=== PATIENT | female | born 1950 | race Caucasian/White ===

== ENCOUNTER → 2016-05-02 | Outpatient (CLI) | payer OTHER ==
[~2016-05-02] MED LIST: AMOX250C3 PO; CEPH500C PO; CHOL100010 PO; CHOL500021 PO; CLTP PO; FAMO20TA11 PO; GABA-113 PO; GABA1CAP4 PO; GARL400T4 PO; INDSR/60 PO; MAGN200T3 PO; MISCCAP80 PO; OMEP20CA9 PO; PANT40TA PO; PROP20TA67 PO; SIMV80TA2 PO; TRAM-10 PO
[2016-05-02 12:55] LABS: ALT/SGPT 27 U/L (12-78); BLOOD UREA NITROGEN 18 mg/dl (7-18); BUN/CREATININE RATIO 24.5 (10-20); CALCIUM 9.5 mg/dl (8.5-10.1); CARBON DIOXIDE 27 mmol/L (21-32); CHLORIDE 106 mmol/L (98-107); CHOLESTEROL 153 mg/dl (0-200); CREATININE 0.73 mg/dl (0.60-1.20); GLUCOSE 76 mg/dl (70-99); POTASSIUM 3.9 mmol/L (3.5-5.1); SODIUM 142 mmol/L (136-145)
[2016-05-02 12:58] LABS: ALB/GLOB RATIO 1.2 (0.9-2); ALKALINE PHOSPHATASE 92 U/L (45-117); AST/SGOT 28 U/L (15-37); CHOLESTEROL/HDL RATIO 2.4; HDL CHOLESTEROL 64 mg/dl; LDL CHOLESTEROL CALCULATED 65 mg/dl; TRIGLYCERIDES 119 mg/dl (0-150); VERY LOW DENSITY LIPOPROT CALC 24 mg/dl
== END | disposition home or self-care (01) ==
LOC: C.LABBFT 09:48
PROVIDERS: ATTEND Internal Medicine
DX: E78.00 Pure hypercholesterolemia, unspecified (principal)

== ENCOUNTER → 2016-05-15 | Outpatient (CLI) | payer OTHER | END | disposition home or self-care (01) | LOC: C.PAPS 10:54 | PROVIDERS: ATTEND Obstetrics & Gynecology | DX: Z12.4 Encounter for screening for malignant neoplasm of cervix (principal); Z85.42 Personal history of malignant neoplasm of other parts of uterus; Z08 Encounter for follow-up examination after completed treatment for malignant neoplasm ==

== ENCOUNTER → 2016-10-31 | Outpatient (CLI) | payer OTHER ==
--- NOTE | 2016-11-01 12:18 | MAMMOGRAPHY REPORT ---
BILATERAL DIGITAL SCREENING MAMMOGRAM TOMOSYNTHESIS WITH CAD: 10/31/2016 CLINICAL HISTORY: Routine screening. Patient has no complaints. TECHNIQUE: Breast tomosynthesis in addition to standard 2D mammography was performed. Current study was also evaluated with a Computer Aided Detection (CAD) system. COMPARISON: Comparison is made to exams dated: 10/30/2015 mammogram, 10/26/2014 mammogram, 10/25/2013 m ammogram, 10/22/2012 mammogram, 10/22/2011 mammogram, and 08/14/2010 mammogram - [facility] nter. BREAST COMPOSITION: There are scattered areas of fibroglandular density in both breasts. FINDINGS: There is a stable metallic biopsy marker clip within the right breast. A few scattered ramesh ign-appearing microcalcifications. No new suspicious mass, architectural distortion or cluster of mi crocalcifications is seen. IMPRESSION: ACR BI-RADS CATEGORY 1: NEGATIVE There is no mammographic evidence of malignancy. A 1 year screening mammogram is recommended. The pa tient will receive written notification of the results. Approximately 10% of breast cancers are not detected with mammography. A negative mammographic report should not delay biopsy if a clinically suggestive mass is present. Sujatha Garcia M.D. ay/:10/31/2016 16:16:48 Car Porter: Jocelyn VIERA)(M), [facility] letter sent: Normal 1/2 BI-RADS Code: ACR BI-RADS Category 1: Negative
== END ==
LOC: C.MAMM 13:05
PROVIDERS: ATTEND Internal Medicine
DX: Z12.31 Encounter for screening mammogram for malignant neoplasm of breast (principal)

== ENCOUNTER → 2016-11-14 | Outpatient (CLI) | payer OTHER ==
[2016-11-14 13:06] LABS: BASO % 0.5 %; BASO ABS # 0.02 K/uL (0-0.2); COMPLETE YES; HEMATOCRIT 44.8 % (37-47); IG% 0.5 %; LYMPH % 23.7 %; LYMPH ABS # 0.95 K/uL (1.2-3.4); MEAN CELL VOLUME 89.2 fL (80-100); MEAN CORPUSCULAR HEMOGLOBIN 28.7 pg (25-34); MEAN CORPUSCULAR HGB CONC 32.1 g/dl (32-36); MEAN PLATELET VOLUME 10.7 fL (7.4-10.4); MONO % 7.7 %; NEUT % 65.6 %; PLATELET COUNT 179 K/uL (130-400); RED BLOOD COUNT 5.02 M/uL (4.2-5.4); WHITE BLOOD COUNT 4.01 K/uL (4.8-10.8)
== END | disposition home or self-care (01) ==
LOC: C.LABBFT 10:20
PROVIDERS: ATTEND Internal Medicine
DX: D72.819 Decreased white blood cell count, unspecified (principal); E55.9 Vitamin D deficiency, unspecified

== ENCOUNTER → 2016-11-21 | Outpatient (CLI) | payer OTHER ==
--- NOTE | 2016-11-21 14:24 | DIAGNOSTIC IMAGING REPORT ---
RIGHT KNEE 3 VIEWS HISTORY: 66 years-old Female M25.569 Joint pain, knee right. Chronic right knee pain COMPARISON: None available TECHNIQUE: 3 views of the right knee FINDINGS: The bones are mildly demineralized. Moderate medial and lateral and mild patellofemoral compartment osteoarthritis is noted. There is a small joint effusion about the knee. No intra-articular loose body, acute fracture or dislocation is identified. There is peripheral sclerosis with central lucency involving the lateral femoral condyle measuring approximately 8 mm transversely. IMPRESSION: 1. Small joint effusion without acute fracture. 2. Moderate medial and lateral with mild patellofemoral compartment osteoarthritis. 3. Possible osteochondral defect of the lateral femoral condyle. The above report was generated using voice recognition software. It may contain grammatical, syntax or spelling errors. Electronically signed by: Pankaj Lainez M.D. 11/21/2016 2:23 PM Dictated Date/Time: 11/21/2016 2:21 PM
== END | disposition home or self-care (01) ==
LOC: C.RAD1850 13:59
PROVIDERS: ATTEND Internal Medicine
DX: M25.561 Pain in right knee (principal); M17.11 Unilateral primary osteoarthritis, right knee

== ENCOUNTER → 2016-12-03 | Outpatient (CLI) | payer OTHER ==
--- NOTE | 2016-12-03 13:19 | DIAGNOSTIC IMAGING REPORT ---
CT LUNG SCREENING, LOW DOSE WITH COMPUTER-AIDED DETECTION (CAD) CLINICAL HISTORY: LOW DOSE LUNG SCREENING COMPARISON STUDY: Chest x-ray dated 12/01/2012. Abdominal CT dated 08/29/2010. CT DOSE: 73.66 mGycm TECHNIQUE: Low-dose helical CT was acquired without intravenous contrast from lung apices to bases and reconstructed at 2.5 mm every 2 mm. CAD was utilized for this study. A dose lowering technique was utilized adhering to the principles of ALARA. FINDINGS: Thyroid: Imaged portions of the thyroid gland are normal in appearance. Thoracic aorta: The thoracic aorta is normal in caliber and demonstrates bovine variant arch anatomy. Heart: The heart is top normal in size and without pericardial effusion. There are coronary artery calcifications. Lungs and pleural spaces: The lungs and pleural spaces are clear noting dependent atelectasis. The trachea and central airways are patent. No concerning pulmonary lesion is identified. Mediastinum: There is no mediastinal lymphadenopathy. [place]: Not well assessed without IV contrast. Axilla: Clear. Upper abdomen: A cyst is partially visualized in the upper pole of the right kidney. Partially visualized upper abdominal viscera is otherwise normal as imaged. Skeletal structures: The skeletal structures are osteopenic. No lytic or blastic lesions are seen. IMPRESSION: 1. The lungs are clear. 2. No concerning pulmonary lesion is identified. CAD FINDINGS: Overall Lung RADS Category: 1 Lung RADS Management Recommendation: Lung-RADS 1: Continue annual screening in 12 months. Lung RADS Follow Up Date: 2017-12-03 Lung RADS Nodule ID: Electronically signed by: Marco Campos M.D. 12/03/2016 1:17 PM Dictated Date/Time: 12/03/2016 1:10 PM
== END | disposition home or self-care (01) ==
LOC: C.CTS 12:36
PROVIDERS: ATTEND Internal Medicine
DX: Z87.891 Personal history of nicotine dependence (principal); M85.80 Other specified disorders of bone density and structure, unspecified site

== ENCOUNTER → 2016-12-24 | Outpatient (CLI) | payer OTHER | END | disposition home or self-care (01) | LOC: C.MAMM 09:53 | PROVIDERS: ATTEND Internal Medicine | DX: M85.88 Other specified disorders of bone density and structure, other site (principal); M85.852 Other specified disorders of bone density and structure, left thigh; M81.0 Age-related osteoporosis without current pathological fracture ==

== ENCOUNTER 2017-01-10 11:25 | Emergency (ER) | payer OTHER ==
[~2017-01-10] VITALS: Ht 167.6 cm; Wt 81.1 kg
[~2017-01-10 11:25] MED LIST changes: -CEPH500C PO; -CHOL100010 PO; -CLTP PO; -FAMO20TA11 PO; -GARL400T4 PO; -MISCCAP80 PO; -OMEP20CA9 PO; -PROP20TA67 PO
[2017-01-10] MEDS ORDERED: MoRPHine SULFATE 4 MG/ML 1 ML CARP\\VIAL IV STA (12:05)
[2017-01-10 12:20] VITALS: O2SAT 96; Ht 167.6 cm; Wt 81.1 kg
[2017-01-10 12:38] LABS: BASO % 0.3 %; BASO ABS # 0.02 K/uL (0-0.2); COMPLETE YES; EOS % 1.2 %; HEMATOCRIT 42.7 % (37-47); IG% 0.2 %; LYMPH % 14.9 %; LYMPH ABS # 0.87 K/uL (1.2-3.4); MEAN CELL VOLUME 89.5 fL (80-100); MEAN CORPUSCULAR HEMOGLOBIN 27.5 pg (25-34); MEAN CORPUSCULAR HGB CONC 30.7 g/dl (32-36); MONO % 5.7 %; NEUT % 77.7 %; PLATELET COUNT 198 K/uL (130-400); RED BLOOD COUNT 4.77 M/uL (4.2-5.4); WHITE BLOOD COUNT 5.84 K/uL (4.8-10.8)
[2017-01-10 12:50] LABS: INR 0.9 (0.9-1.1); PARTIAL THROMBOPLASTIN RATIO 0.9; PROTHROMBIN TIME (PATIENT) 9.8 SECONDS (9.0-12.0)
--- NOTE | 2017-01-10 12:59 | DIAGNOSTIC IMAGING REPORT ---
L ANKLE MIN 3 VIEWS ROUTINE CLINICAL HISTORY: Left ankle pain and swelling. COMPARISON: None. DISCUSSION: No acute fractures or subluxations are visualized. There is a plantar calcaneal spur. The bones are osteopenic. No destructive lesions are visualized. There is mild soft tissue swelling IMPRESSION: 1. No acute fractures 2. No destructive lesions identified 3. Plantar calcaneal spur Electronically signed by: Angelo Carias M.D. 01/10/2017 12:57 PM Dictated Date/Time: 01/10/2017 12:57 PM
[2017-01-10 13:00] LABS: CALCIUM 9.1 mg/dl (8.5-10.1); CREATININE 0.76 mg/dl (0.60-1.20); POTASSIUM 3.8 mmol/L (3.5-5.1)
--- NOTE | 2017-01-10 13:07 | DIAGNOSTIC IMAGING REPORT ---
LEFT FOOT 3 VIEWS HISTORY: Left ankle/foot pain, swelling, warm, eval for osteomyelitis COMPARISON: None. FINDINGS: There is no fracture or dislocation. Mild soft tissue swelling within the ankle and hindfoot. Plantar heel spur. No cortical destruction to suggest an osteomyelitis. No radiopaque foreign bodies. IMPRESSION: No evidence for osteomyelitis within the left foot. Mild soft tissue swelling at the ankle/hindfoot. Electronically signed by: Alexander Olivas M.D. 01/10/2017 1:06 PM Dictated Date/Time: 01/10/2017 1:01 PM
--- NOTE | 2017-01-10 15:15 | EMERGENCY ROOM VISIT NOTE ---
ED Visit Note First contact with patient: 11:43 CHIEF COMPLAINT: Ankle pain HISTORY OF PRESENT ILLNESS: This 66-year-old female patient presents to the emergency department by personal vehicle with her with complaints of left ankle pain and swelling for the past 4-5 days. She denies any known injury to the foot or ankle. She reports a past medical history of multiple episodes of septic polyarthritis, primarily in her knees, hips, and shoulders. She has never had septic arthritis in either of her ankles. Her last bout with septic arthritis was 2007, she states that she takes amoxicillin daily as a chronic preventative antibiotic. She complains of pain in swelling in the entire ankle, lateral more than medial, worse with movement of the ankle and walking on the ankle. She denies any pain or swelling into the foot, and she denies any pain or swelling extending up the calf or behind the knee. She has taken Tylenol with minimal relief. She denies any chest pain, shortness of breath, palpitations, dizziness or syncope, fevers or chills, any other joint pains or unusual rash. REVIEW OF SYSTEMS: A 6 system review of systems was completed with positives and pertinent negatives listed in the HPI. ALLERGIES: Reviewed in chart MEDICATIONS: Reviewed in chart PMH: Septic polyarthritis, neuropathy, hypertension, GERD SOCIAL HISTORY: Lives at home. Denies tobacco, alcohol, recreational drug use. PHYSICAL EXAM: Vital Signs: Reviewed Nurse's notes, vital signs stable. GENERAL : Pleasant and cooperative, no acute distress, but appears in pain, well- developed, well-nourished. MENTAL STATUS: Alert, oriented to person place and time, and cooperative. MUSCULOSKELETAL: The left ankle is swollen and tender over the entire ankle joint, warm to palpation compared to the other ankle and the rest of the leg and foot. There is increased pain with range of motion of the ankle joint. Full active range of motion is intact. The skin is intact and there is no ligamentous instability. There is no fifth metatarsal tenderness. There is no tenderness over the rest of the foot. There is no calf or tibia/fibular tenderness. There is no visual deformity. The foot and toes are warm and well-perfused. Dorsalis pedis pulse 2+. Sensation to pain and light touch is intact. Capillary refill less than 2 seconds. EMERGENCY DEPARTMENT COURSE: I examined the patient. Differential diagnosis includes ankle sprain, strain, fracture, osteomyelitis, joint effusion, arthritis. X-rays of the left ankle and foot were reviewed by myself and read by radiology and reveal soft tissue swelling with no acute abnormalities and no evidence of osteomyelitis. Labs were done including blood cultures and a lactic acid. There is no leukocytosis, lactic acid level is normal, ESR is within normal limits, and CRP is only mildly elevated. The patient has been afebrile and hemodynamically stable. Based on her presentation today and her ED workup, I do not believe she has septic arthritis at this time, however given her previous history concerning symptoms of developing swelling and pain in the ankle, will treat her with antibiotics and have her follow closely with her PCP and infectious disease specialist. Review of chart reveals previous infections were culture positive for group B strep. Patient is already chronically on amoxicillin, concerning that she may have developed some resistance to this. I discussed with Joan Acosta, who recommends a dose of IV Rocephin today and Keflex for treatment of possible cellulitis versus joint infection. Patient was updated on all results and plan for discharge home, as well as follow-up with her providers, she verbalized understanding. The patient was also instructed on return precautions should her symptoms worsen. Patient was discharged home in stable condition and ambulatory. Medication Reconciliation: I attest that I have personally reviewed the patient' s current medication list. Blood pressure screening: The patient was found to have normal blood pressure on screening and does not require follow-up for repeat blood pressure check. I discussed the patient with Dr. Raines, who also evaluated the patient and agrees with my assessment and plan. Problem List Medical Problems: (1) History of - hysterectomy Status: Resolved Current/Historical Medications Scheduled Amoxicillin (Amoxil), 250 MG PO QAM Cephalexin Monohydrate (Keflex), 500 MG PO QID Cholecalciferol (Vitamin D3), 1 TAB PO QPM Gabapentin (Gabapentin), 600 MG PO TID Magnesium (Magnesium), 1 TAB PO QPM Pantoprazole (Protonix), 40 MG PO QAM Propranolol Hcl (Propranolol ER), 60 MG PO QAM Simvastatin (Zocor), 80 MG PO QPM Scheduled PRN Tramadol (Ultram), 50 MG PO TID PRN for Pain Allergies Coded Allergies: Codeine (Verified Adverse Reaction, Mild, NAUSEA, 01/10/17) Vital Signs Date Time Temp Pulse Resp B/P (MAP) Pulse Ox O2 Delivery O2 Flow Rate FiO2 01/10/17 18:59 36.7 55 17 110/61 95 01/10/17 18:56 55 17 110/61 95 Room Air 01/10/17 17:37 55 17 110/62 95 Room Air 01/10/17 16:34 60 21 109/69 98 Room Air 01/10/17 16:30 64 01/10/17 14:35 61 20 92/54 99 Room Air 01/10/17 13:15 57 18 113/62 94 Room Air 01/10/17 12:30 76 01/10/17 12:20 72 20 114/67 96 Room Air 01/10/17 12:20 96 Room Air 01/10/17 11:28 36.7 79 18 121/84 96 Room Air Laboratory Results 01/10/17 12:20 Red Blood Count 4.77, Mean Corpuscular Volume 89.5, Mean Corpuscular Hemoglobin 27.5, Mean Corpuscular Hemoglobin Concent 30.7, Mean Platelet Volume 10.0, Neutrophils (%) (Auto) 77.7, Lymphocytes (%) (Auto) 14.9, Monocytes (%) (Auto) 5.7, Eosinophils (%) (Auto) 1.2, Basophils (%) (Auto) 0.3, Neutrophils # (Auto) 4.54, Lymphocytes # (Auto) 0.87, Monocytes # (Auto) 0.33, Eosinophils # (Auto) 0.07, Basophils # (Auto) 0.02 01/10/17 12:20 Test 01/10/17 12:20 White Blood Count 5.84 K/uL (4.8-10.8) Red Blood Count 4.77 M/uL (4.2-5.4) Hemoglobin 13.1 g/dL (12.0-16.0) Hematocrit 42.7 % (37-47) Mean Corpuscular Volume 89.5 fL (80-100) Mean Corpuscular Hemoglobin 27.5 pg (25-34) Mean Corpuscular Hemoglobin Concent 30.7 g/dl (32-36) Platelet Count 198 K/uL (130-400) Mean Platelet Volume 10.0 fL (7.4-10.4) Neutrophils (%) (Auto) 77.7 % Lymphocytes (%) (Auto) 14.9 % Monocytes (%) (Auto) 5.7 % Eosinophils (%) (Auto) 1.2 % Basophils (%) (Auto) 0.3 % Neutrophils # (Auto) 4.54 K/uL (1.4-6.5) Lymphocytes # (Auto) 0.87 K/uL (1.2-3.4) Monocytes # (Auto) 0.33 K/uL (0.11-0.59) Eosinophils # (Auto) 0.07 K/uL (0-0.5) Basophils # (Auto) 0.02 K/uL (0-0.2) RDW Standard Deviation 46.4 fL (36.4-46.3) RDW Coefficient of Variation 14.1 % (11.5-14.5) Immature Granulocyte % (Auto) 0.2 % Immature Granulocyte # (Auto) 0.01 K/uL (0.00-0.02) Erythrocyte Sedimentation Rate 19 mm/hr (0-21) Prothrombin Time 9.8 SECONDS (9.0-12.0) Prothromb Time International Ratio 0.9 (0.9-1.1) Activated Partial Thromboplast Time 24.6 SECONDS (21.0-31.0) Partial Thromboplastin Ratio 0.9 Anion Gap 7.0 mmol/L (3-11) Est Creatinine Clear Calc Drug Dose 78.2 ml/min Estimated GFR () 94.7 Estimated GFR (Non- 81.7 BUN/Creatinine Ratio 26.0 (10-20) Lactic Acid Level 1.2 mmol/L (0.4-2.0) Calcium Level 9.1 mg/dl (8.5-10.1) Total Bilirubin 0.5 mg/dl (0.2-1) Direct Bilirubin 0.1 mg/dl (0-0.2) Aspartate Amino Transf (AST/SGOT) 19 U/L (15-37) Alanine Aminotransferase (ALT/SGPT) 18 U/L (12-78) Alkaline Phosphatase 89 U/L (45-117) Total Creatine Kinase 89 U/L (26-192) C-Reactive Protein 1.11 mg/dl (0-0.29) Total Protein 7.3 gm/dl (6.4-8.2) Albumin 3.8 gm/dl (3.4-5.0) Medications Administered Medications (Trade) Dose Ordered Sig/Isiah Route Start Time Stop Time Status Last Admin Dose Admin Morphine Sulfate (MoRPHine SULFATE INJ) 4 mg NOW STAT IV 01/10/17 12:05 01/10/17 12:08 DC 01/10/17 12:23 4 MG Ceftriaxone Sodium (Rocephin Inj) 1 gm NOW STAT IV 01/10/17 16:43 01/10/17 16:45 DC 01/10/17 17:35 1 GM Departure Information Impression Primary Impression: Pain and swelling of left ankle Dispostion Home / Self-Care Condition GOOD Prescriptions Cephalexin Monohydrate (Keflex) 500 Mg Cap 500 MG PO QID for 10 Days, #40 CAP Prov: Sofia Everett CRNP 01/10/17 Referrals Seven Gee M.D. (PCP) Patient Instructions ED [facility] T[facility] Additional Instructions Follow up closely with your PCP and touch base with your infectious disease doctor this week. You were prescribed Keflex to be taken 4 times a day for 10 days. This is an antibiotic. All antibiotics have the potential to cause diarrhea. Stop this medication and contact a medical provider if you were to develop any significant adverse side effects including: wheezing, shortness of breath, passing out, vomiting, or a diffuse rash. Always take antibiotics as directed and COMPLETE the ENTIRE course regardless of the improvement of your symptoms. Ibuprofen 600 mg every 6-8 hours as needed for pain. You may alternate this with Tylenol 1000 mg every 8 hours. Please return to the emergency department for any worsening symptoms, including worsening pain, increased swelling, redness of the joint, streaking up the leg, open wounds or pus drainage, fever/chills, dizziness or passing out, or any other concerns.
--- NOTE | 2017-01-10 15:19 | EMERGENCY ROOM VISIT NOTE ---
ED Visit Note First contact with patient: 11:43 66-year-old female with left ankle swelling was fully evaluated by Sofia Everett NP. Please see her note. I also independently evaluated the patient. She has a prior history of septic arthritis. She has been on prophylactic antibiotics. We will switch to a new antibiotic. The patient will also be given something for pain. The patient will require close follow-up.
[2017-01-10] MEDS ORDERED: CEFTRIAXONE SOD INJ 1 GM ADDVIAL IV STA (16:43)
[2017-01-10] MEDS ORDERED: CEPH500C PO (18:37)
[2017-01-10 18:59] VITALS: BP 110/61; PULSE 55; TEMP 36.7; O2SAT 95
== END 2017-01-10 19:01 | disposition home or self-care (01) ==
LOC: C.EDB 11:26 → C.EDC 19:01
DX: M25.572 Pain in left ankle and joints of left foot (principal); M79.89 Other specified soft tissue disorders; I10 Essential (primary) hypertension; K21.9 Gastro-esophageal reflux disease without esophagitis; Z90.710 Acquired absence of both cervix and uterus; Z79.899 Other long term (current) drug therapy; Z88.5 Allergy status to narcotic agent

== ENCOUNTER → 2017-01-24 | Outpatient (CLI) | payer OTHER ==
[~2017-01-24] MED LIST changes: -GABA-113 PO
[2017-01-24 12:30] LABS: URIC ACID 5.1 mg/dl (2.6-7.2)
[2017-01-24 15:26] LABS: RHEUMATOID FACTOR < 10.0 U/mL (0-15)
== END | disposition home or self-care (01) ==
LOC: C.LAB1850 10:32
PROVIDERS: ATTEND Internal Medicine Infectious Disease
DX: M13.0 Polyarthritis, unspecified (principal)

== ENCOUNTER → 2017-05-09 | Outpatient (CLI) | payer OTHER ==
--- NOTE | 2017-05-09 11:50 | DIAGNOSTIC IMAGING REPORT ---
MRI OF THE LUMBAR SPINE WITHOUT IV CONTRAST CLINICAL HISTORY: Lumbosacral radiculopathy. COMPARISON STUDY: MRI of the lumbar spine dated 11/02/2007. Abdominal CT dated 08/29/2010. TECHNIQUE: MRI of the lumbar spine is performed utilizing various T1 and T2 weighted sequences in the axial and sagittal planes. IV contrast was not administered for this examination. FINDINGS: Lumbar spine: Marrow signal intensity is heterogeneous. Vertebral body height and alignment are maintained throughout the lumbar spine. Tiny anterior osteophytes are seen throughout. The transverse and spinous processes are intact as imaged. There is no evidence of spondylolysis. Chronic degenerative endplate change with endplate edema is seen at L3-L4. A tiny hemangioma is seen in the body of L1. Intervertebral discs: Degenerative disc desiccation is seen throughout the lumbar spine. There is moderate to severe loss of height at L3-L4. Mild loss of height is seen at L2-L3. Spinal cord: The visualized spinal cord is normal in morphology and signal intensity. The conus visualized terminates at the L1-L2 interspace. The nerve roots of the cauda equina are normal in morphology. L1-L2: There is minimal posterior disc bulge. The central canal and neural foramina are patent. L2-L3: There is broad-based posterior disc bulge. No significant acquired compromise of the central canal is seen at this level. The disc bulge likely abuts the transiting left L3 nerve root. There is mild subarticular stenosis. The neural foramina are patent. L3-L4: There is a posterior disc bulge eccentric to the left. No significant acquired compromise of the central canal is identified. There is left-sided subarticular stenosis. The disc bulge may abut the exiting left L3 nerve root. Facet arthropathy is of no consequence. The neural foramina are patent. L4-L5: There is a tiny posterior disc bulge. The central canal and neural foramina are patent. Facet arthropathy is of no consequence. L5-S1: The central canal and neural foramina are patent. Mild facet arthropathy is of no consequence. Sacrum: The visualized sacrum is normal in morphology and signal intensity. A 1.5 cm Tarlov cyst is incidentally noted at the level of S2. Soft tissues: There is fatty atrophy of the paraspinous musculature. A right renal cyst is partially imaged. The visualized retroperitoneal structures are grossly unremarkable but incompletely assessed. IMPRESSION: 1. There is no disc herniation, central canal stenosis, or significant neural foraminal narrowing identified throughout the lumbar spine. 2. Degenerative disc disease as above with endplate edema seen at L3-L4. 3. Mild spondylotic change as above. See discussion for detailed level by level analysis. 4. No destructive bony process is identified. Dictated: 05/09/2017 11:25 AM Transcribed: 05/09/2017 11:50 AM MARIA VICTORIA_Lyn Electronically signed by: Marco Campos M.D. 05/09/2017 11:52 AM Dictated Date/Time: 05/09/2017 11:25 AM
== END | disposition home or self-care (01) ==
LOC: C.MRI 10:28
PROVIDERS: ATTEND Psychiatry & Neurology Neurology
DX: M51.16 Intervertebral disc disorders with radiculopathy, lumbar region (principal)

== ENCOUNTER → 2017-05-20 | Outpatient (CLI) | payer OTHER ==
[~2017-05-20] MED LIST changes: +GABA-1219 PO; -GABA1CAP4 PO
== END | disposition home or self-care (01) ==
LOC: C.PAPS 14:18
PROVIDERS: ATTEND Obstetrics & Gynecology
DX: Z08 Encounter for follow-up examination after completed treatment for malignant neoplasm (principal); Z91.89 Other specified personal risk factors, not elsewhere classified; N89.4 Leukoplakia of vagina

== ENCOUNTER → 2017-05-22 | Outpatient (CLI) | payer OTHER ==
[2017-05-22 17:26] LABS: BASO % 0.3 %; BASO ABS # 0.01 K/uL (0-0.2); EOS % 1.8 %; EOS ABS # 0.07 K/uL (0-0.5); HEMOGLOBIN 13.5 g/dL (12.0-16.0); IG# 0.01 K/uL (0.00-0.02); LYMPH % 21.6 %; LYMPH ABS # 0.82 K/uL (1.2-3.4); MEAN CELL VOLUME 89.6 fL (80-100); MEAN CORPUSCULAR HEMOGLOBIN 28.8 pg (25-34); MEAN CORPUSCULAR HGB CONC 32.1 g/dl (32-36); MEAN PLATELET VOLUME 11.1 fL (7.4-10.4); MONO % 8.4 %; MONO ABS # 0.32 K/uL (0.11-0.59); NEUT % 67.6 %; NEUT ABS # 2.57 K/uL (1.4-6.5); PLATELET COUNT 192 K/uL (130-400); RED CELL DISTRIBUTION WIDTH CV 14.2 % (11.5-14.5); RED CELL DISTRIBUTION WIDTH SD 46.4 fL (36.4-46.3)
[2017-05-22 17:37] LABS: ALBUMIN 3.7 gm/dl (3.4-5.0); ALT/SGPT 18 U/L (12-78); BLOOD UREA NITROGEN 18 mg/dl (7-18); CALCIUM 9.3 mg/dl (8.5-10.1); CARBON DIOXIDE 24 mmol/L (21-32); CHOLESTEROL 160 mg/dl (0-200); CREATININE 0.83 mg/dl (0.60-1.20); GLUCOSE 81 mg/dl (70-99); POTASSIUM 4.1 mmol/L (3.5-5.1); SODIUM 140 mmol/L (136-145)
[2017-05-22 17:40] LABS: ALKALINE PHOSPHATASE 81 U/L (45-117); AST/SGOT 22 U/L (15-37); LDL CHOLESTEROL CALCULATED 69 mg/dl; TOTAL PROTEIN 7.1 gm/dl (6.4-8.2)
== END | disposition home or self-care (01) ==
LOC: C.LABBFT 11:49
PROVIDERS: ATTEND Internal Medicine
DX: D72.819 Decreased white blood cell count, unspecified (principal); E55.9 Vitamin D deficiency, unspecified; E78.00 Pure hypercholesterolemia, unspecified

== ENCOUNTER → 2017-06-03 | Day surgery (SDC) | payer OTHER ==
[2016-12-30 11:01] VITALS: BMI 27.0
[2017-05-16 14:38] VITALS: Ht 168.9 cm; Wt 79.5 kg
[~2017-06-03] VITALS: Ht 168.9 cm; Wt 79.5 kg
[~2017-06-03] MED LIST changes: +CYM/30 PO; +LIDOCAINE HCL 2% 2 ML VIAL (20MG/ML) ONE; +PROPOFOL IV EMULSION 10 MG/ML 20 ML VIAL IV ONE; +SODIUM CHLORIDE 0.9% 500ML 500 ML IV ONE
--- NOTE | 2017-06-03 11:02 | Endo History and Physical ---
History & Physical Date of Service: Jun 03, 2017. Chief Complaint: screening Referring Physician: Dr. Gee History of Present Illness 66 yo CF who presents for screening colonoscopy. Past Medical History Arthritis, Cancer Past Surgical History Hx Cardiac Surgery: No Hx Internal Defibrillator: No Hx Pacemaker: No Hx Abdominal Surgery: Yes (TUBAL LIGATION) Hx of Implantable Prosthesis: No Hx Post-Op Nausea and Vomiting: No Hx Cancer Surgery: Yes (MARA BSO) Hx Thoracic Surgery: No Hx Orthopedic: Yes ("SEPTIC ARTHRITIS" I&D IN HIP, WRIST, SHOULDER, KNEE) Hx Urinary Tract Surgery: No Family History Colon CA Social History Smoking Status: Never Smoker Hx Substance Use: No Hx Alcohol Use: No Allergies Coded Allergies: Codeine (Verified Adverse Reaction, Mild, NAUSEA, 06/03/17) Current Medications Reported Home Medications Medications Dose Route/Sig Max Daily Dose Days Date Category Cymbalta (Duloxetine Hcl) 30 Mg Cap 30 Mg PO DAILY 06/03/17 Reported Magnesium 200 Mg Tab 1 Tab PO QPM 12/30/16 Reported Protonix (Pantoprazole Sodium) 40 Mg Tab 40 Mg PO QAM 12/30/16 Reported Propranolol ER (Propranolol Hcl) 60 Mg Capcr 60 Mg PO QAM 12/30/16 Reported Vitamin D3 (Cholecalciferol) 5,000 Unit Chw 1 Tab PO QPM 12/30/16 Reported Gabapentin 300 Mg Cap 600 Mg PO BID 10/04/14 Reported Ultram (Tramadol HCl) 50 Mg Tab 50 Mg PO TID PRN 08/22/14 Reported Amoxil (Amoxicillin) 250 Mg Cap 250 Mg PO QAM 08/22/14 Reported Zocor (Simvastatin) 80 Mg Tab 80 Mg PO QPM 02/22/10 Reported Vital Signs Weight (Kilograms): 79.55 Height (Feet): 5 Height (Inches): 6.5 Date Time Temp Pulse Resp B/P (MAP) Pulse Ox O2 Delivery O2 Flow Rate FiO2 06/03/17 10:42 36.4 57 20 134/62 (86) 97 Room Air Physical Exam General Appearance: WD/WN, no apparent distress Respiratory/Chest: Auscultation: breath sounds normal Cardiovascular: Heart Auscultation: RRR Abdomen: Bowel Sounds: normal Inspection & Palpation: soft, non-distended, no tenderness, guarding & rebound Assessment and Plan Assessment: 66 yo CF who presents for screening colonoscopy. Plan: Proceed with colonoscopy.
--- NOTE | 2017-06-03 11:45 | GI REPORT ---
Procedure Date: 06/03/2017 10:26 AM Procedure: Colonoscopy Indications: Screening for colorectal malignant neoplasm Medicines: Monitored Anesthesia Care Complications: No immediate complications. Estimated Blood Loss: Estimated blood loss: none. Procedure: Pre-Anesthesia Assessment: - Prior to the procedure, a History and Physical was performed, and patient medications and allergies were reviewed. The patient's tolerance of previous anesthesia was also reviewed. The risks and benefits of the procedure and the sedation options and risks were discussed with the patient. All questions were answered, and informed consent was obtained. Prior Anticoagulants: The patient has taken no previous anticoagulant or antiplatelet agents. ASA Grade Assessment: II - A patient with mild systemic disease. After reviewing the risks and benefits, the patient was deemed in satisfactory condition to undergo the procedure. After I obtained informed consent, the scope was passed under direct vision. Throughout the procedure, the patient's blood pressure, pulse, and oxygen saturations were monitored continuously. The scope was introduced through the anus with the intention of advancing to the ileum. The scope was advanced to the ascending colon before the procedure was aborted. Medications were given. The colonoscopy was performed without difficulty. The patient tolerated the procedure well. The quality of the bowel preparation was poor. The rectum was photographed. Findings: The perianal and digital rectal examinations were normal. A large amount of semi-liquid stool was found in the entire colon, precluding visualization. Lavage of the area was performed using a large amount of normal saline, resulting in incomplete clearance with continued poor visualization. Non-bleeding internal hemorrhoids were found during retroflexion. The hemorrhoids were small. Impression: - Preparation of the colon was poor. - Stool in the entire examined colon. - Non-bleeding internal hemorrhoids. - No specimens collected. Recommendation: - Resume previous diet. - Continue present medications. - Repeat colonoscopy in 6 months because the bowel preparation was poor. - Return to primary care physician as previously scheduled. Jose Mullen, DO 06/03/2017 11:45:13 AM This report has been signed electronically. Note Initiated On: 06/03/2017 10:26 AM I attest to the content of the Intraoperative Record and orders documented therein, exceptions below
--- NOTE | 2017-06-03 11:46 | Discharge Instructions ---
Endoscopy Patient Instructions Date / Procedure(s) Performed Jun 03, 2017. Colonoscopy Allergy Information Coded Allergies: Codeine (Verified Adverse Reaction, Mild, NAUSEA, 06/03/17) Discharge Date / Findings Jun 03, 2017. Poor bowel prep Internal hemorrhoids Medication Instructions OK to resume all medications today as prescribed Reported Home Medications Medications Dose Route/Sig Max Daily Dose Days Date Category Cymbalta (Duloxetine Hcl) 30 Mg Cap 30 Mg PO DAILY 06/03/17 Reported Magnesium 200 Mg Tab 1 Tab PO QPM 12/30/16 Reported Protonix (Pantoprazole Sodium) 40 Mg Tab 40 Mg PO QAM 12/30/16 Reported Propranolol ER (Propranolol Hcl) 60 Mg Capcr 60 Mg PO QAM 12/30/16 Reported Vitamin D3 (Cholecalciferol) 5,000 Unit Chw 1 Tab PO QPM 12/30/16 Reported Gabapentin 300 Mg Cap 600 Mg PO BID 10/04/14 Reported Ultram (Tramadol HCl) 50 Mg Tab 50 Mg PO TID PRN 08/22/14 Reported Amoxil (Amoxicillin) 250 Mg Cap 250 Mg PO QAM 08/22/14 Reported Zocor (Simvastatin) 80 Mg Tab 80 Mg PO QPM 02/22/10 Reported Provider Instructions Activity Restrictions - No exercising or heavy lifting for 24 hours. - Do not drink alcohol the day of the procedure. - Do not drive a car or operate machinery until the day after the procedure. - Do not make any important decisions or sign important papers in 24 hours after the procedure. Following Day: - Return to full activity which may include returning to work/school. Diet Start your diet with liquids and light foods (jello, soup, juice, toast). Then eat your usual diet if not nauseated. Treatment For Common After Affects For mild abdominal pain, bloating, or excessive gas: - Rest - Eat lightly - Lie on right side Follow-Up Information Follow-up with Dr. Gee as scheduled Anesthesia Information What You Should Know You have had a procedure that required some medicine to reduce anxiety and discomfort. This treatment is called moderate sedation. After receiving the treatment, you may be sleepy, but you will be able to breathe on your own. The effects of the treatment may last for several hours. Follow these instructions along with Activity/Diet recommendations noted above: * Do NOT do anything where dizziness or clumsiness would be dangerous. * Rest quietly at home today, then you can be up and about tomorrow. * Have a responsible person stay with you the rest of today. * You may have had an I.V. today. If so, you may take the dressing off later today. Recommendations Call your doctor if: * Trouble breathing * Continuous vomiting for more than 24 hours * Temperature above 101 degrees * Severe abdominal pain or bloating * Pain not relieved by pain medicine ordered * There is increased drainage or redness from any incision * A large amount of rectal bleeding greater than 2-3 tablespoons. (If you had a polyp/s removed or have hemorrhoids, a small amount of blood - from the rectum is to be expected.) * You have any unanswered questions or concerns. IN THE EVENT OF A SERIOUS EMERGENCY, GO TO THE NEAREST EMERGENCY ROOM Your discharge instructions were prepared by provider Jose Mullen. Patient Instructions Signature Page Kriss Molina Patient (or Guardian) Signature/Date: I have read and understand the instructions given to me by my caregivers. Caregiver/RN/Doctor Signature/Date: The above-named patient and/or guardian has received patient instructions on this date. + Original Patient Signature Page (only) stays with chart. Please make copy for patient.
--- NOTE | 2017-06-03 12:14 | Anesthesiology Progress Note ---
Anesthesia Post Op Note Date & Time Jun 03, 2017 at 12:13 Vital Signs Pain Intensity: 0 Vital Signs Past 12 Hours Date Time Temp Pulse Resp B/P (MAP) Pulse Ox O2 Delivery O2 Flow Rate FiO2 06/03/17 12:00 58 18 133/67 (89) 99 Room Air 06/03/17 11:45 57 18 113/71 (85) 95 Room Air 06/03/17 10:42 36.4 57 20 134/62 (86) 97 Room Air Notes Mental Status: alert / awake / arousable, participated in evaluation Pt Amnestic to Procedure: Yes Nausea / Vomiting: adequately controlled Pain: adequately controlled Airway Patency, RR, SpO2: stable & adequate BP & HR: stable & adequate Hydration State: stable & adequate Anesthetic Complications: no major complications apparent
[2017-06-03 12:15] VITALS: BP 129/71; PULSE 51; O2SAT 99
== END | disposition home or self-care (01) ==
LOC: C.GI 10:15
PROVIDERS: ATTEND Internal Medicine
DX: Z12.11 Encounter for screening for malignant neoplasm of colon (principal); Z80.0 Family history of malignant neoplasm of digestive organs; Z88.5 Allergy status to narcotic agent; Z79.899 Other long term (current) drug therapy; K64.8 Other hemorrhoids

== ENCOUNTER → 2017-07-15 | Outpatient (CLI) | payer OTHER ==
[~2017-07-15] MED LIST changes: -LIDOCAINE HCL 2% 2 ML VIAL (20MG/ML) ONE; -PROPOFOL IV EMULSION 10 MG/ML 20 ML VIAL IV ONE; -SODIUM CHLORIDE 0.9% 500ML 500 ML IV ONE
== END | disposition home or self-care (01) ==
LOC: C.LABSPEC 10:15
PROVIDERS: ATTEND Nurse Practitioner
DX: R32 Unspecified urinary incontinence (principal)

== ENCOUNTER → 2017-11-03 | Outpatient (CLI) | payer OTHER ==
--- NOTE | 2017-11-04 07:30 | MAMMOGRAPHY REPORT ---
BILATERAL DIGITAL SCREENING MAMMOGRAM TOMOSYNTHESIS WITH CAD: 11/03/2017 CLINICAL HISTORY: Routine screening. Patient has no complaints. TECHNIQUE: The study was acquired using full field digital technology and interpreted from soft copy. Breast tomosynthesis in addition to standard 2D mammography was performed. Current study was also ev aluated with a Computer Aided Detection (CAD) system. COMPARISON: Comparison is made to exams dated: 10/31/2016 mammogram, 10/30/2015 mammogram, 10/26/2014 m ammogram, 10/25/2013 mammogram, 10/22/2012 mammogram, and 10/22/2011 mammogram - [facility] enter. BREAST COMPOSITION: There are scattered areas of fibroglandular density in both breasts. FINDINGS: There is stable nodular asymmetry in the lateral posterior left on the CC view that appears similar dating back to at least 07/24/2009, therefore likely benign. A stable metallic biopsy marker clip in the right upper outer quadrant. No suspicious mass, architectural distortion or cluster of microcalcifications is seen. IMPRESSION: ACR BI-RADS CATEGORY 1: NEGATIVE There is no mammographic evidence of malignancy. A 1 year screening mammogram is recommended.( [id number]) The patient will receive written notification of the results. Some breast cancers are not detected with mammography. A negative mammographic report should not vj y biopsy if a clinically suggestive mass is present. Sujatha Garcia M.D. ay/:11/03/2017 15:19:27 Field Service Rep: RT Luke(Alex)(M), [facility] letter sent: Normal 1/2 BI-RADS Code: ACR BI-RADS Category 1: Negative
== END | disposition home or self-care (01) ==
LOC: C.MAMM 12:59
PROVIDERS: ATTEND Internal Medicine
DX: Z12.31 Encounter for screening mammogram for malignant neoplasm of breast (principal)

== ENCOUNTER → 2017-12-08 | Outpatient (CLI) | payer OTHER ==
--- NOTE | 2017-12-08 10:10 | DIAGNOSTIC IMAGING REPORT ---
CT LUNG SCREENING CHEST, LOW DOSE WITH COMPUTER-AIDED DETECTION (CAD) CLINICAL HISTORY: LOW DOSE LUNG SCREENING COMPARISON STUDY: CT scan performed December 03, 2016 FINDINGS: A dose reduction technique was utilized according to the principles of ALARA. The study was interpreted with CAD. The thyroid gland is unremarkable in appearance. There is no evidence of thoracic aortic aneurysm. There are mild coronary artery calcifications. There is a partially visualized upper pole right renal cyst. There is no pathologic adenopathy. There are no pleural effusions. No destructive skeletal lesions are visualized. There are minor dependent atelectatic changes. There is a punctate calcified granuloma within the left lung apex. IMPRESSION: 1. No suspicious pulmonary nodules. 12 month screening follow-up is recommended. CT LUNG SCREENING CHEST, LOW DOSE WITH COMPUTER-AIDED DETECTION (CAD)CAD FINDINGS: Overall Lung RADS Category: 1 Lung RADS Management Recommendation: Continue annual lung cancer screening. Lung RADS Follow Up Date: 2018-12-08 Lung RADS Nodule ID: Electronically signed by: Angelo Carias M.D. 12/08/2017 10:09 AM Dictated Date/Time: 12/08/2017 10:00 AM
== END ==
LOC: C.CTS 09:49
PROVIDERS: ATTEND Internal Medicine
DX: Z87.891 Personal history of nicotine dependence (principal)